=== PATIENT | male | born 1965 | race Caucasian/White ===

== ENCOUNTER 2017-09-01 13:00 | Emergency (ER) | payer BC ==
[~2017-09-01] VITALS: Ht 180.3 cm; Wt 80.0 kg
[~2017-09-01 13:00] MED LIST: ADVINUNK; ALBUAER2 INH; TRIA3AER NAE
[2017-09-01 13:07] VITALS: TEMP 36.8; Ht 180.3 cm; Wt 80.0 kg
[2017-09-01] MEDS ORDERED: DEXAMETHASONE SOD INJ 4 MG/ML VIAL IV STA (13:15)
[2017-09-01] MEDS ORDERED: RANITIDINE HCL 50 MG/100 ML D5W IV STA (13:15)
[2017-09-01] MEDS ORDERED: MTR/600 PO (13:31)
[2017-09-01] MEDS ORDERED: EPP3/2 PO (15:37)
[2017-09-01] MEDS ORDERED: PRED50TA PO (15:37)
[2017-09-01 15:39] VITALS: BP 136/75; PULSE 62; O2SAT 96
--- NOTE | 2017-09-01 16:50 | EMERGENCY ROOM VISIT NOTE ---
History Report prepared by Per: Min Pena Under the Supervision of: Dr. Glen Colon M.D. First contact with patient: 13:06 Stated Complaint: ALLERGIC REACTION History of Present Illness The patient is a 52 year old male who presents to the Emergency Room via EMS with complaints of a sudden allergic reaction after being stung by a bee prior to arrival today. He says that there was a bee in his drink, and the bee stung his upper lip, causing him to have upper lip swelling and trouble swallowing. The patient notes that he is not typically allergic to bee stings. He says that his lip is feeling better with the ice, and he was given an Epi and Benadryl by EMS. The patient notes no notable chronic medical conditions other than hypertension. Pt denies LOC, headache, fevers, chills, diaphoresis, visual changes, neck pain, chest pain, breathing difficulties, nausea, vomiting, abdominal pain, back pain, melena, hematochezia, urinary symptoms, numbness, weakness, lymphadenopathy, rash, or other complaints. Source of History: patient, spouse/significant other Onset: Prior to arrival today Position: other (global - allergic reaction) Quality: other (swelling to upper lip) Timing: other (sudden ) Modifying Factors (Relieving): other (Epi, Benadryl) Note: Associated symptoms: Trouble swallowing from upper lip swelling. Review of Systems See HPI for pertinent positives and negatives. A total of ten systems were reviewed and were otherwise negative. Past Medical & Surgical Medical Problems: (1) HTN (hypertension) Family History Cancer Heart disease Hypertension Social History Smoking Status: Never Smoker Smokeless Tobacco Use: No Alcohol Use: occasionally Housing Status: lives with family Occupation Status: employed Current/Historical Medications Scheduled Prednisone (Prednisone), 50 MG PO DAILY Scheduled PRN Epinephrine (Epipen 2-Mitchell), 1 DOSE PO UD PRN for ALLERGIC REACTION Ibuprofen (Ibuprofen), 600 MG PO Q6 PRN for Pain Allergies Coded Allergies: Sulfa Antibiotics (Unverified Allergy, Unknown, UNSURE, 09/01/17) Physical Exam Vital Signs Date Time Temp Pulse Resp B/P (MAP) Pulse Ox O2 Delivery O2 Flow Rate FiO2 09/01/17 15:39 62 18 136/75 96 Room Air 09/01/17 14:07 60 18 131/76 98 Room Air 09/01/17 13:48 64 09/01/17 13:37 67 18 128/91 98 Room Air 09/01/17 13:07 36.8 72 18 161/76 97 Room Air 09/01/17 13:07 Room Air Physical Exam GENERAL: Awake, alert, well-appearing, in no distress HENT: Significant upper lip edema. Oropharynx unremarkable. EYES: Normal conjunctiva. Sclera non-icteric. NECK: Supple. No nuchal rigidity. FROM. No JVD. RESPIRATORY: Clear to auscultation. CARDIAC: Regular rate, normal rhythm. Extremities warm and well perfused. Pulses equal. ABDOMEN: Soft, non-distended. No tenderness to palpation. No rebound or guarding. No masses. RECTAL: Deferred. MUSCULOSKELETAL: Chest examination reveals no tenderness. The back is symmetrical on inspection without obvious abnormality. There is no CVA tenderness to palpation. No joint edema. LOWER EXTREMITIES: Calves are equal size bilaterally and non-tender. No edema. No discoloration. NEURO: Normal sensorium. No sensory or motor deficits noted. SKIN: No rash or jaundice noted. Medical Decision & Procedures Medications Administered Medications (Trade) Dose Ordered Sig/Dalia Route Start Time Stop Time Status Last Admin Dose Admin Ranitidine HCl (zANTac IV) 50 mg NOW STAT IV 09/01/17 13:15 09/01/17 13:17 DC 09/01/17 13:25 50 MG Dexamethasone Sodium Phosphate (Decadron Inj) 10 mg NOW STAT IV 09/01/17 13:15 09/01/17 13:17 DC 09/01/17 13:24 10 MG ED Course 1312: The patient was evaluated in room C2B. A complete history and physical exam was performed. 1315: Ordered Decadron Inj 10 mg IV, Zantac IV 50 mg IV. 1520: I reevaluated the patient and he is feeling better. His lip is less swollen. The patient verbally expressed understanding and agreement of the treatment plan. The patient will be discharged. Medical Decision Prior records/ancillary studies reviewed. Triage Nursing notes reviewed and agree them. Additional history obtained from family. The patient's history was concerning for possible allergic reaction. Differential diagnosis: Etiologies such as allergic reaction, anaphylaxis, urticaria, Luna-Ahmet syndrome, toxic epidermal necrolysis, erythema multiforme, cellulitis, as well as others were entertained. Physical examination: As above. ER treatment provided: Continuous cardiac monitoring Zantac 50 mg IV Decadron 10 mg IV On reassessment the patient felt better. Diagnostic interpretation by me: Imaging studies: Deferred It appears the patient had an allergic reaction. The above treatment did well to reverse the symptoms. After prolonged monitoring and frequent reassessments the patient did very well and symptoms resolved. He was counseled on bee stings.I gave my usual and customary discussion regarding this issue. By the evaluation outlined above emergent etiologies such as airway compromise, Luna-Ahmet syndrome, toxic epidermal necrolysis, erythema multiforme, cellulitis, as well as others were deemed relatively unlikely. The patient and were informed about the findings as listed above. All questions were answered and they were pleased with the treatment. Return instructions were outlined and the patient was discharged in stable condition. Outpatient prescription management: EpiPen prednisone Referral: The patient was referred back to his primary care physician for follow-up in 2- 3 days for a recheck of the current condition. Medication Reconcilliation Current Medication List: was personally reviewed by me Blood Pressure Screening Patient's blood pressure: Elevated blood pressure Blood pressure disposition: Elevated BP felt to be situational Impression Primary Impression: Allergic reaction Scribe Attestation The scribe's documentation has been prepared under my direction and personally reviewed by me in its entirety. I confirm that the note above accurately reflects all work, treatment, procedures, and medical decision making performed by me. Departure Information Dispostion Home / Self-Care Prescriptions Epinephrine (EPIPEN 2-MITCHELL) 0.3 Mg Inj 1 DOSE PO UD Y for ALLERGIC REACTION, #1 BOX 1 Refill Prov: Glen Colon MD 09/01/17 Prednisone (Prednisone) 50 Mg Tab 50 MG PO DAILY for 4 Days, #4 TAB Prov: Glen Colon MD 09/01/17 Referrals Jerry Foreman D.O. (PCP) Lauren Gaspar Additional Instructions ALLERGIC REACTION INSTRUCTIONS: DO NOT drive, drink alcohol, operate machinery, or perform dangerous activities today. You were given medications in the ER that can affect your ability to safely function or operate a vehicle. Epi-Pen: Use one injection as instructed for severe allergic reactions associated with shortness of breath, difficulty breathing, or throat or tongue swelling. If you use this injection call 911 or proceed immediately to the nearest Emergency Room. Prednisone 50mg: Once daily until the prescription is finished. It is best to take this earlier in the day as some patients note occasional difficulty falling asleep when taken in the late evening. Diphenhydramine(Benadryl) 25mg: use 25 to 50 mg every six hours for swelling, itching, or hives. This medication is sedating and will cause drowsiness. Avoid alcohol, operating machinery or dangerous equipment, working on ladders or roofs, DRIVING, or situations where being under the influence may be dangerous. Zantac 75: Take two pills twice a day along with Benadryl as needed for swelling , itching, or hives. Most people know this for its affect on the stomach, but it also acts similar to, but less potent than Benadryl for allergic reactions. Both the Benadryl and the Zantac are available [id number]. Continue current medications. Return to the emergency department for worsening of your rash, swelling of your face, lips, tongue, or throat, difficulty breathing, vomiting, or as needed. Follow-up with your primary care physician in 2 to 3 days for a recheck of your current condition.
== END 2017-09-01 15:57 | disposition home or self-care (01) ==
LOC: EDUNIT# 13:00 → C.EDC 13:03
DX: T63.441A Toxic effect of venom of bees, accidental (unintentional), initial encounter (principal); I10 Essential (primary) hypertension; Z82.49 Family history of ischemic heart disease and other diseases of the circulatory system